=== PATIENT | male | born 1980 | race Two or more races ===

== ENCOUNTER 2017-03-26 11:09 | Emergency (ER) | payer MEDICARE, OTHER ==
[~2017-03-26] VITALS: Ht 175.3 cm; Wt 94.8 kg
[2017-03-26] MEDS ORDERED: HYDROcodone-ACET 10/325MG TAB ONE (11:23)
[2017-03-26] MEDS ORDERED: HYDROcodone-ACET 10/325MG TAB PO ONE (11:30)
[2017-03-26 14:00] VITALS: BP 126/89
== END 2017-03-26 14:00 | disposition home or self-care (01) ==
LOC: ER 11:09
DX: N45.1 Epididymitis (principal)
CPT/HCPCS: 76870

== ENCOUNTER 2022-09-30 01:03 | Emergency (ER) | payer MEDICARE, OTHER ==
[~2022-09-30] VITALS: Ht 175.3 cm; Wt 89.5 kg
[2022-09-30 01:25] VITALS: BP 145/73
[2022-09-30 02:12] LABS: Basophils # (auto) 0 10 ^3/uL (0-0.2); Basophils % (auto) 0.2 % (0.0-2.0); Eosinophils # (auto) 0 10 ^3/uL (0-0.8); Eosinophils % (auto) 0.1 % (0.0-7.0); Hematocrit 38.8 % (41.0-53.0); Hemoglobin 13.2 g/dL (13.5-17.5); Lymphocytes # (auto) 1.8 10 ^3/uL (0.4-5.4); Lymphocytes % (auto) 20.3 % (10.0-50.0); Mean Corpuscular Hgb Conc. 34.1 g/dL (32.0-36.0); Mean Corpuscular Volume 87.8 fL (80.0-100.0); Monocytes % (auto) 11.2 % (0.0-12.0); Neutrophils # (auto) 6.2 10 ^3/uL (1.6-8.6); Neutrophils % (auto) 68.2 % (37.0-80.0); Red Blood Cells 4.41 10^6/uL (4.5-5.90); Red Cell Distribution Width 12.7 % (11.8-14.3)
[2022-09-30 02:22] LABS: Urine Bacteria NONE SEEN /hpf (None Seen); Urine Blood TRACE /uL (Negative); Urine Mucus FEW (None Seen); Urine Specific Gravity 1.019 (1.001-1.035); Urine WBC 3 /hpf (0 - 3)
[2022-09-30 02:28] LABS: Alcohol, Urine < 3.0 mg/dL (0-10); Amphetamine Screen, Urine NEGATIVE (NEGATIVE); Barbiturate Scree,Urine NEGATIVE (NEGATIVE); Benzodiazephine Screen, Urine NEGATIVE (NEGATIVE); Cannabinoid Screen, Urine POSITIVE (NEGATIVE); Cocaine Screen, Urine NEGATIVE (NEGATIVE)
[2022-09-30 02:28] LABS: Albumin 3.8 g/dL (3.4-5.0); Anion Gap 5 (5-15); BUN/Creatinine Ratio 16.5 (10.0-20.0); Blood Alcohol < 3.0 mg/dL (0-5); Blood Urea Nitrogen 15 mg/dL (7-18); Calcium 9.2 mg/dL (8.5-10.1); Carbon Dioxide 25 mmol/L (21-32); Chloride 109 mmol/L (98-107); GFR African American 119 mL/min; GFR Non-African American 98 mL/min; Glucose 101 mg/dL (74-106); Potassium 4.6 mmol/L (3.5-5.1); Sodium 139 mmol/L (136-145)
[2022-09-30 02:31] LABS: Alanine Aminotransferase 25 U/L (16-61); Alkaline Phosphatase 76 U/L (45-117); Aspartate Aminotransferase 24 U/L (15-37); Bilirubin, Total 0.6 mg/dL (0.2-1.0); Total Protein 7.7 g/dL (6.4-8.2)
[2022-09-30 02:35] LABS: Opiate Scree,Urine NEGATIVE (NEGATIVE); Phencyclidine Screen, Urine NEGATIVE (NEGATIVE)
[2022-09-30 02:35] LABS: Acetaminophen < 2.0 ug/mL (10-30); Salicylate < 1.7 mg/dL (2.8-20.0)
== END 2022-09-30 06:05 | disposition left against medical advice (07) ==
LOC: ER 01:03
DX: F41.9 Anxiety disorder, unspecified (principal); Z53.21 Procedure and treatment not carried out due to patient leaving prior to being seen by health care provider
CPT/HCPCS: 36415; 80053; 80307; 80320; 80329; 81001; 85025

== ENCOUNTER 2023-01-22 23:41 | Emergency (ER) | payer MEDICARE, OTHER ==
[~2023-01-22] VITALS: Ht 175.3 cm; Wt 78.0 kg
[2023-01-22 23:41] VITALS: BP 138/77; PULSE 66; RESP 16; TEMP 97.7
[2023-01-23] MEDS ORDERED: ELUX1TAB2 PO (01:59)
[2023-01-23] MEDS ORDERED: IBUP-1456 PO (01:59)
[2023-01-23] MEDS ORDERED: KETOROLAC TROMETH 60MG/2ML VIAL IM ONE (02:00)
[2023-01-23 02:19] VITALS: O2SAT 97
[2023-01-23] MEDS ORDERED: ACET500T58 PO (02:21)
== END 2023-01-23 02:41 | disposition home or self-care (01) ==
LOC: ER 23:41
DX: M54.81 Occipital neuralgia (principal); Z87.19 Personal history of other diseases of the digestive system
CPT/HCPCS: 70450; 96372; 99285; J1885

== ENCOUNTER 2023-03-02 00:43 | Emergency (ER) | payer MEDICARE, OTHER ==
[~2023-03-02] VITALS: Ht 175.3 cm; Wt 78.2 kg
[~2023-03-02 00:43] MED LIST: ACET500T58 PO; ELUX1TAB2 PO
[2023-03-02] MEDS ORDERED: KETOROLAC TROMETH 60MG/2ML VIAL IM ONE (02:15)
[2023-03-02] MEDS ORDERED: HYDROcodone-ACET 7.5/325MG TAB PO ONE (02:15)
[2023-03-02] MEDS ORDERED: NAP500T PO (02:18)
[2023-03-02] MEDS ORDERED: HYDR-4902 PO (02:18)
[2023-03-02] MEDS ORDERED: DexAMETHasone SOD PHOS 10MG/1ML VIAL INJ IM ONE (02:30)
[2023-03-02 02:44] VITALS: BP 130/80; PULSE 78; RESP 18; TEMP 98.3; O2SAT 96
== END 2023-03-02 02:47 | disposition home or self-care (01) ==
LOC: ER 00:44
DX: M17.12 Unilateral primary osteoarthritis, left knee (principal); M25.562 Pain in left knee; I10 Essential (primary) hypertension; Z79.1 Long term (current) use of non-steroidal anti-inflammatories (NSAID); Z79.899 Other long term (current) drug therapy
CPT/HCPCS: 96372; 99283; J1885

== ENCOUNTER 2023-03-07 17:55 | Emergency (ER) | payer MEDICARE, OTHER ==
[~2023-03-07] VITALS: Ht 175.3 cm; Wt 75.9 kg
[~2023-03-07 17:55] MED LIST changes: +HYDR-4902 PO; +NAP500T PO
[2023-03-07 18:41] VITALS: BP 144/95; PULSE 97; RESP 20; O2SAT 99
[2023-03-07 19:25] LABS: Urine Bacteria NONE SEEN /hpf (None Seen); Urine Blood Negative /uL (Negative); Urine Clarity Clear (Clear); Urine Color Colorless (Yellow); Urine Protein, UAD Negative (Negative); Urine Specific Gravity 1.009 (1.001-1.035); Urine Urobilinogen Normal (Negative); Urine WBC <1 /hpf (0 - 3)
[2023-03-07 19:30] LABS: Basophils # (auto) 0 10 ^3/uL (0-0.2); Eosinophils # (auto) 0 10 ^3/uL (0-0.8); Eosinophils % (auto) 0.1 % (0.0-7.0); Hemoglobin 14.9 g/dL (13.5-17.5); Lymphocytes # (auto) 1.8 10 ^3/uL (0.4-5.4); Neutrophils # (auto) 6.2 10 ^3/uL (1.6-8.6); White Blood Cell 8.5 10^3/uL (4.4-10.8)
[2023-03-07 19:31] LABS: Basophils % (auto) 0.2 % (0.0-2.0); Hematocrit 41.4 % (41.0-53.0); Lymphocytes % (auto) 20.7 % (10.0-50.0); Mean Corpuscular Hemoglobin 31.4 pg (28.0-32.0); Mean Corpuscular Hgb Conc. 36.1 g/dL (32.0-36.0); Mean Corpuscular Volume 87.2 fL (80.0-100.0); Monocytes # (auto) 0.5 10 ^3/uL (0-1.3); Monocytes % (auto) 6.3 % (0.0-12.0); Neutrophils % (auto) 72.7 % (37.0-80.0); Nucleated Red Blood Cells % 0.2 %; Red Blood Cells 4.75 10^6/uL (4.5-5.90)
[2023-03-07 19:34] LABS: Alanine Aminotransferase 18 U/L (7-40); Albumin 5.1 g/dL (3.2-4.8); Alkaline Phosphatase 82 U/L (46-116); Anion Gap 9 (5-15); Aspartate Aminotransferase 12 U/L (13-40); BUN/Creatinine Ratio 15.3 (10.0-20.0); Blood Urea Nitrogen 15 mg/dL (9-23); Calcium 9.9 mg/dL (8.7-10.4); Carbon Dioxide 26 mmol/L (20-30); Chloride 106 mmol/L (98-107); Glucose 83 mg/dL (74-106); Potassium 3.7 mmol/L (3.5-5.1); Sodium 141 mmol/L (136-145)
[2023-03-07 19:35] LABS: Bilirubin, Total 0.6 mg/dL (0.2-1.0)
== END 2023-03-07 19:45 | disposition left against medical advice (07) ==
LOC: ER 17:55
DX: R55 Syncope and collapse (principal); L53.9 Erythematous condition, unspecified; Z53.21 Procedure and treatment not carried out due to patient leaving prior to being seen by health care provider
CPT/HCPCS: 36415; 80053; 81001; 85025

== ENCOUNTER 2023-03-18 04:13 | Emergency (ER) | payer MEDICARE, OTHER ==
[~2023-03-18] VITALS: Ht 175.3 cm; Wt 76.0 kg
[2023-03-18 04:28] VITALS: BP 124/94; PULSE 89; RESP 16; TEMP 98.3; O2SAT 96
[2023-03-18] MEDS ORDERED: DICL1GEL59 EX (05:22)
== END 2023-03-18 05:48 | disposition home or self-care (01) ==
LOC: ER 04:13
DX: M25.562 Pain in left knee (principal); M25.561 Pain in right knee; G89.29 Other chronic pain; I10 Essential (primary) hypertension; Z79.899 Other long term (current) drug therapy
CPT/HCPCS: 99283; J7030

== ENCOUNTER 2023-05-11 14:50 | Emergency (ER) | payer MEDICARE, OTHER ==
[~2023-05-11] VITALS: Ht 175.3 cm; Wt 81.4 kg
[~2023-05-11 14:50] MED LIST changes: +DICL1GEL59 EX
[2023-05-11] MEDS ORDERED: IBU600T PO (15:23)
[2023-05-11] MEDS ORDERED: KETOROLAC TROMETH 60MG/2ML VIAL IM ONE (15:30)
[2023-05-11 16:10] LABS: Basophils # (auto) 0 10 ^3/uL (0-0.2); Basophils % (auto) 0.4 % (0.0-2.0); Eosinophils # (auto) 0.1 10 ^3/uL (0-0.8); Eosinophils % (auto) 0.9 % (0.0-7.0); Hematocrit 42.3 % (41.0-53.0); Hemoglobin 14.2 g/dL (13.5-17.5); Lymphocytes # (auto) 2.1 10 ^3/uL (0.4-5.4); Lymphocytes % (auto) 26.4 % (10.0-50.0); Mean Corpuscular Hemoglobin 29.9 pg (28.0-32.0); Mean Corpuscular Hgb Conc. 33.7 g/dL (32.0-36.0); Mean Corpuscular Volume 88.8 fL (80.0-100.0); Monocytes # (auto) 0.7 10 ^3/uL (0-1.3); Monocytes % (auto) 9.3 % (0.0-12.0); Red Blood Cells 4.76 10^6/uL (4.5-5.90); Red Cell Distribution Width 13.5 % (11.8-14.3)
[2023-05-11 16:30] LABS: Alanine Aminotransferase 14 U/L (7-40); Albumin 4.7 g/dL (3.2-4.8); Alkaline Phosphatase 82 U/L (46-116); Anion Gap 5 (5-15); Aspartate Aminotransferase 12 U/L (13-40); BUN/Creatinine Ratio 24.5 (10.0-20.0); Bilirubin, Total 0.4 mg/dL (0.2-1.0); Blood Urea Nitrogen 23 mg/dL (9-23); Calcium 9.5 mg/dL (8.7-10.4); Carbon Dioxide 29 mmol/L (20-30); Chloride 106 mmol/L (98-107); Glucose 95 mg/dL (74-106); Potassium 4.2 mmol/L (3.5-5.1); Sodium 140 mmol/L (136-145); Total Protein 7.2 g/dL (5.7-8.2)
[2023-05-11 21:02] VITALS: BP 141/86; PULSE 58; RESP 19; TEMP 97.5; O2SAT 100
[2023-05-11 22:17] LABS: Rapid Influenza B Negative (Negative)
[2023-05-11 22:18] LABS: Rapid Influenza A Positive (Negative)
[2023-05-11 22:19] LABS: COVID19 ANTIGEN SOFIA FIA NEGATIVE (NEGATIVE)
== END 2023-05-12 00:05 | disposition home or self-care (01) ==
LOC: ER 14:50
DX: R07.89 Other chest pain (principal); I10 Essential (primary) hypertension; E78.5 Hyperlipidemia, unspecified; Z79.899 Other long term (current) drug therapy; Z20.822 Contact with and (suspected) exposure to COVID-19; X50.0XXA Overexertion from strenuous movement or load, initial encounter; Y93.89 Activity, other specified; Y92.89 Other specified places as the place of occurrence of the external cause; Y99.8 Other external cause status
CPT/HCPCS: 36415; 71045; 73030; 80053; 84484; 85025; 85379; 87426; 87804; 96372; 99284; J1885

== ENCOUNTER 2023-09-11 08:12 | Emergency (ER) | payer MEDICARE, OTHER ==
[~2023-09-11] VITALS: Ht 175.3 cm; Wt 80.8 kg
[~2023-09-11 08:12] MED LIST changes: +IBU600T PO
[2023-09-11 08:58] VITALS: BP 136/88; PULSE 83; RESP 18; TEMP 98.6; O2SAT 96
[2023-09-11] MEDS: KETOROLAC TROMETH 30 MG/ML 1ML VIAL IV ONE (09:30)
[2023-09-11] MEDS: SODIUM CHLORIDE 0.9% 1,000 ML IV ONE (09:43)
[2023-09-11] MEDS: diphenhdrAMINE HCL 50 MG/1 ML VL IV ONE (09:56)
[2023-09-11] MEDS: PROCHLORPERAZINE EDISYLATE 5 MG/ML 2ML VIAL IV ONE (09:59)
== END 2023-09-11 12:19 | disposition home or self-care (01) ==
LOC: ER 08:12
DX: G43.909 Migraine, unspecified, not intractable, without status migrainosus (principal); I10 Essential (primary) hypertension; E78.5 Hyperlipidemia, unspecified
CPT/HCPCS: 70450; 96361; 96374; 96375; 99285; J0780; J1200; J1885; J7030

== ENCOUNTER → 2023-10-02 | Emergency (ER) | payer MEDICARE, OTHER ==
[~2023-10-02] MED LIST changes: +LIDO5CRE14 EX; +PRED20TA2 PO
== END | disposition left against medical advice (07) ==
LOC: ER 20:01
DX: J18.9 Pneumonia, unspecified organism (principal); Z53.21 Procedure and treatment not carried out due to patient leaving prior to being seen by health care provider

== ENCOUNTER → 2023-10-02 | Emergency (ER) | payer MEDICARE, OTHER ==
[~2023-10-02] VITALS: Ht 175.3 cm; Wt 79.3 kg
[~2023-10-02] MED LIST changes: -LIDO5CRE14 EX; -PRED20TA2 PO
[2023-10-02 17:04] VITALS: BP 143/81; PULSE 84; RESP 18; O2SAT 98
== END | disposition left against medical advice (07) ==
LOC: ER 16:52
DX: Z23 Encounter for immunization (principal); Z53.21 Procedure and treatment not carried out due to patient leaving prior to being seen by health care provider

== ENCOUNTER 2023-10-15 07:59 | Emergency (ER) | payer MEDICARE, OTHER ==
[~2023-10-15] VITALS: Ht 175.3 cm; Wt 83.7 kg
[2023-10-15 08:26] LABS: Urine Bacteria None Seen /hpf (None Seen)
[2023-10-15 08:39] LABS: Urine Blood Negative /uL (Negative); Urine Clarity Clear (Clear); Urine Color Light-Yellow (Yellow); Urine Protein, UAD Negative (Negative); Urine Specific Gravity 1.018 (1.001-1.035); Urine Urobilinogen Normal (Negative); Urine WBC <1 /hpf (0 - 3)
[2023-10-15] MEDS: SODIUM CHLORIDE 0.9% 1,000 ML IV ONE (08:39)
[2023-10-15 08:40] VITALS: BP 120/87; PULSE 59; RESP 18; TEMP 97.7; O2SAT 100
[2023-10-15 08:53] LABS: Basophils # (auto) 0 10 ^3/uL (0-0.2); Basophils % (auto) 0.5 % (0.0-2.0); Eosinophils # (auto) 0.1 10 ^3/uL (0-0.8); Eosinophils % (auto) 1.5 % (0.0-7.0); Hematocrit 42.1 % (41.0-53.0); Hemoglobin 14.2 g/dL (13.5-17.5); Lymphocytes # (auto) 1.5 10 ^3/uL (0.4-5.4); Lymphocytes % (auto) 26.3 % (10.0-50.0); Mean Corpuscular Hemoglobin 29.9 pg (28.0-32.0); Mean Corpuscular Hgb Conc. 33.8 g/dL (32.0-36.0); Mean Corpuscular Volume 88.6 fL (80.0-100.0); Monocytes # (auto) 0.4 10 ^3/uL (0-1.3); Monocytes % (auto) 6.9 % (0.0-12.0); Neutrophils # (auto) 3.8 10 ^3/uL (1.6-8.6); Neutrophils % (auto) 64.8 % (37.0-80.0); Nucleated Red Blood Cells % 0.1 %; Red Blood Cells 4.76 10^6/uL (4.5-5.90); Red Cell Distribution Width 12.6 % (11.8-14.3); White Blood Cell 5.8 10^3/uL (4.4-10.8)
[2023-10-15 08:58] LABS: Chloride 108 mmol/L (98-107); Potassium 3.9 mmol/L (3.5-5.1); Sodium 141 mmol/L (136-145)
[2023-10-15 08:59] LABS: Anion Gap 2 (5-15); Carbon Dioxide 31 mmol/L (20-30)
[2023-10-15 09:00] LABS: Calcium 9.4 mg/dL (8.5-10.1)
[2023-10-15 09:04] LABS: BUN/Creatinine Ratio 16.9 (10.0-20.0); Blood Urea Nitrogen 14 mg/dL (9-23); Glucose 94 mg/dL (74-106)
== END 2023-10-15 10:29 | disposition left against medical advice (07) ==
LOC: ER 07:59
DX: E87.3 Alkalosis (principal); R10.9 Unspecified abdominal pain; R30.9 Painful micturition, unspecified; E78.5 Hyperlipidemia, unspecified; I10 Essential (primary) hypertension
CPT/HCPCS: 36415; 80048; 81001; 85025; 96360; 96361; 99283; J7030

== ENCOUNTER 2023-11-01 21:06 | Emergency (ER) | payer MEDICARE, OTHER ==
[~2023-11-01] VITALS: Ht 175.3 cm; Wt 80.6 kg
[2023-11-01 22:43] VITALS: BP 125/92; PULSE 65; RESP 20; O2SAT 100
== END 2023-11-02 03:47 | disposition left against medical advice (07) ==
LOC: ER 21:06
DX: M79.605 Pain in left leg (principal); Z53.21 Procedure and treatment not carried out due to patient leaving prior to being seen by health care provider
CPT/HCPCS: 93971

== ENCOUNTER 2023-12-06 10:54 | Emergency (ER) | payer MEDICARE, OTHER ==
[~2023-12-06] VITALS: Ht 175.3 cm; Wt 80.0 kg
[2023-12-06 12:00] VITALS: BP 145/102; PULSE 75; RESP 18; TEMP 97.5; O2SAT 95
[2023-12-06] MEDS: KETOROLAC TROMETH 60MG/2ML VIAL IM ONE (12:41)
[2023-12-06] MEDS: methylPREDNISolone SOD SUCC 125 MG/2 ML VL IM ONE (12:41)
[2023-12-06] MEDS ORDERED: PRED20TA2 PO (12:56)
[2023-12-06] MEDS ORDERED: LIDO5CRE14 EX (12:56)
== END 2023-12-06 13:00 | disposition home or self-care (01) ==
LOC: ER 10:54
DX: M06.9 Rheumatoid arthritis, unspecified (principal); F32.A Depression, unspecified; E78.5 Hyperlipidemia, unspecified; I10 Essential (primary) hypertension; Z79.899 Other long term (current) drug therapy
CPT/HCPCS: 96372; 99284; J1885; J2919

== ENCOUNTER 2024-01-01 06:11 | Emergency (ER) | payer MEDICARE, OTHER ==
[~2024-01-01] VITALS: Ht 175.3 cm; Wt 78.8 kg
[~2024-01-01 06:11] MED LIST changes: +LIDO5CRE14 EX; +PRED20TA2 PO
[2024-01-01 08:00] VITALS: BP 125/81; PULSE 60; RESP 16; TEMP 98; O2SAT 100
== END 2024-01-01 08:56 | disposition home or self-care (01) ==
LOC: ER 06:11
DX: M21.241 Flexion deformity, right finger joints (principal); M19.90 Unspecified osteoarthritis, unspecified site; I10 Essential (primary) hypertension; E78.5 Hyperlipidemia, unspecified; Z79.899 Other long term (current) drug therapy
CPT/HCPCS: 73130

== ENCOUNTER 2024-03-30 16:16 | Emergency (ER) | payer MEDICARE, OTHER ==
[~2024-03-30] VITALS: Ht 175.3 cm; Wt 79.9 kg
[2024-03-30 16:54] LABS: Urine Bacteria None Seen /hpf (None Seen)
[2024-03-30 16:59] LABS: Urine Blood Negative /uL (Negative); Urine Clarity Clear (Clear); Urine Color Light-Yellow (Yellow); Urine Protein, UAD 1+ (Negative); Urine Specific Gravity 1.017 (1.001-1.035); Urine Urobilinogen Normal (Negative); Urine WBC 1 /hpf (0 - 3)
--- NOTE | 2024-03-30 17:38 | ED.PDOC ---
General HPI Comments 43-year-old male with past medical history pertinent for rheumatoid arthritis, HTN, presents to ED for a lump on his left testicle x2 weeks, worsening today. Patient reports that he did as self-testicular exam and started noticing the lump which has grown bigger. He states that it did not cause him any symptoms until today when he started feeling some pain. He currently rates his pain as 3/10 in severity. Patient denies any penile discharge, dysuria, fever, abdominal pain, nausea, vomiting. He denies any recent injuries. He states that he has a appointment with his PCP scheduled for ultrasound and labs. No alleviating or aggravating factors. Chief Complaint: Testicle Pain Time Seen by MD: 16:25 [facility] Care Provider: [facility] Reviewed notes: Nurses Notes, Medications, Allergies Allergies: Coded Allergies: NO KNOWN ALLERGIES (Unverified , 03/26/17) Home Meds Active Scripts Lidocaine (Anorectal) (Lidocaine 5%) 5 % Cre, 5 % EX BID, #60 CRE Prov:YECENIA KAMINSKI 12/06/23 Prednisone (Prednisone) 20 Mg Tab, 40 MG PO DAILY, #20 TAB Prov:YECENIA KAMINSKI 12/06/23 Ibuprofen Micronized (MOTRIN TABLET) 600 Mg Tb, 600 MG PO TID PRN for 5 Days, #15 TAB *Black box warning-NSAIDS can increase risk of NC & hypertension, GI irritation, ulceration, bleed, perferation. Do not use post cardiac surgery. Use short duration/lowest effective dose. Prov:MARIA INES LOVE MD 05/11/23 Diclofenac Sodium (Topical) (Voltaren Arthritis Pain) 1 % Gel, 1 % EX TID, #90 GM Prov:RENÉ MONTALVO PAC 03/18/23 Hydrocodone-Acetaminophen (Hydrocodone Bitartrate/AC 5-325 mg) 1 Tab Tab, 1 TAB PO Q6HR, #10 TAB as needed for severe pain Prov:NAOMI FUENTES TECHNICAL ADVISOR 03/02/23 Naproxen (NAPROSYN TABLET) 500 Mg Tb, 1 TAB PO BID, #20 TAB 1 Refill as needed for pain Prov:NAOMI FUENTES TECHNICAL ADVISOR 03/02/23 Acetaminophen (Acetaminophen) 500 Mg Tab, 500 MG PO QIDP, #30 TAB 0 Refills Prov:YONATHAN TORRES 01/23/23 Eluxadoline (Viberzi) 100 Mg Tab, 100 MG PO BID, #30 TAB 0 Refills Prov:BRIANYONATHAN 01/23/23 Mode of Arrival: Ambulatory Past Medical History PAST MEDICAL HISTORY: Arthritis, Depression, High Lipids, HTN Surgical History: Denies all surgeries Family History Family History: Reviewed,noncontributory to illness, Family hx of HTN Social History Smoker: Non-Smoker Alcohol: Denies ETOH Use Drugs: Denies Drug Use Lives In: Home Constitutional: denies: chills, diaphoresis, fatigue, fever, malaise, sweats, weakness, others EENTM: denies: blurred vision, double vision, ear bleeding, ear discharge, ear drainage, ear pain, ear ringing, eye pain, eye redness, hearing loss, mouth pain, mouth swelling, nasal discharge, nose bleeding, nose congestion, nose pain, photophobia, tearing, throat pain, throat swelling, voice changes, others Respiratory: denies: cough, hemoptysis, orthopnea, SOB at rest, shortness of breath, SOB with excertion, stridor, wheezing, others Cardiovascular: denies: chest pain, dizzy spells, diaphoresis, Dyspnea on exertion, edema, irregular heart beat, left arm pain, lightheadedness, palpitations, PND, syncope, others Gastrointestinal: denies: abdomen distended, abdominal pain, blood streaked bowels, constipated, diarrhea, dysphagia, difficulty swallowing, hematemesis, melena, nausea, poor appetite, poor fluid intake, rectal bleeding, rectal pain, vomiting, others Genitourinary: reports: testicle pain; denies: burning, dysuria, flank pain, frequency, hematuria, incontinence, penile discharge, penile sore, pain, testicle swelling, urgency, others Neurological: denies: dizziness, fainting, headache, left sided numbness, left sided weakness, numbness, paresthesia, pre-existing deficit, right sided numbness, right sided weakness, seizure, speech problems, tingling, tremors, weakness, others Musculoskeletal: denies: back pain, gout, joint pain, joint swelling, muscle pain, muscle stiffness, neck pain, others Integumetry: denies: bruises, change in color, change in hair/nails, dryness, laceration, lesions, lumps, rash, wounds, others Allergic/Immunocompromised: denies: Difficulty Healing, Frequent Infections, Hives, Itching, others Hematologic/Lymphatic: denies: anemia, blood clots, easy bleeding, easy bruising, swollen glands, others Endocrine: denies: excessive hunger, excessive sweating, excessive thirst, excessive urination, flushing, intolerance to cold, intolerance to heat, unexplained weight gain, unexplained weight loss, others Psychiatric: denies: anxiety, bipolar disorder, depression, hopeless, panic disorder, schizophrenia, sleepless, suicidal, others All Other Systems: Reviewed and Negative Physical Exam General Appearance: No Apparent Distress, Normal HEENT: Normal ENT Inspection, Pharynx Normal, TMs Normal Neck: Full Range of Motion, Non-Tender, Normal, Normal Inspection Respiratory: Chest Non-Tender, Lungs Clear, No Accessory Muscle Use, No Respiratory Distress, Normal Breath Sounds Cardiovascular: No Edema, No JVD, No Murmur, No Gallop, Normal Peripheral Pulses, Regular Rate/Rhythm Breast Exam: Deferred Gastrointestinal: No Organomegaly, Non Tender, No Pulsatile Mass, Normal Bowel Sounds, Soft Genitalia: Testicle (No testicular swelling noted bilaterally. Cremasteric reflex present bilaterally. Small cyst-like structure felt on the left testicle. No tenderness to palpation to the testicles.) Pelvic: Deferred Rectal: Deferred Extremities: No calf tenderness, Normal capillary refill, Normal inspection, Normal range of motion, Non-tender, No pedal edema Musculoskeletal : Apperance: Normal Neurologic: Alert, grinding machine operator portable II-XII nml as Tested, No Motor Deficits, Normal Affect, Normal Mood, No Sensory Deficits Cerebellar Function: Normal Reflexes: Normal Skin: Dry, Normal Color, Warm Lymphatic: No Adenopathy Was a procedure done? Was a procedure done?: No Differential Diagnosis Kidney stone (Female): N/A Penile/Scrotal: Epidiymitis, UTI, Hydrocele, Testicular Torsion X-Ray, Labs, Meds, VS Vital Signs Date Time Temp Pulse Resp B/P (MAP) Pulse Ox O2 Delivery O2 Flow Rate FiO2 03/30/24 19:20 65 20 98 Room Air 03/30/24 19:20 98.8 67 20 134/86 (102) 97 98.8 03/30/24 16:25 98.6 77 18 158/98 (118) 98 Lab Test 03/30/24 16:30 Range/Units Urine Color Light-yellow Yellow Urine Clarity Clear Clear Urine pH 6.0 5.0-9.0 Urine Specific [place] 1.017 1.001-1.035 Urine Protein 1+ H Negative Urine Ketones Trace Negative Urine Blood Negative Negative /uL Urine Nitrite Negative Negative Urine Bilirubin Negative Negative Urine Urobilinogen Normal Negative mg/dL Urine Leukocyte Esterase Negative Negative /uL Urine RBC 1 0 - 3 /hpf Urine WBC 1 0 - 3 /hpf Urine Squamous Epithelial Cells None seen <5 /hpf Urine Bacteria None seen None Seen /hpf Urine Glucose Normal Normal mg/dL X-Ray, Labs, Meds, VS Comment Testicular US Findings: History of vasectomy . Right testicle measures 4.8 x 2.3 x 3.2 cm with homogenous echotexture and normal contours. Right epididymal head measures 1.1 cm and demonstrates tubular ectasia. Left testicle measures 4.9 x 2.4 x 3 cm with homogenous echotexture and normal contours. Left epididymal head measures 1.3 cm and demonstrates tubular ectasia.. Normal testicular color and spectral Doppler flow bilaterally. No evidence of testicular torsion, or mass. Trace bilateral hydroceles. Impression: No evidence of testicular torsion. Trace bilateral hydrocele. Tubular ectasia of bilateral epididymis. MDM: Patient with history as above presented with left testicle pain. History obtained from patient. Patient was nontoxic, stable, afebrile, ambulatory, no acute distress. Exam as above. Labs reviewed. Urinalysis was negative for acute infection. Independently reviewed imaging. Testicular ultrasound showed tubular ectasia. Reviewed external records. All findings were discussed with the patient. Differential diagnosis considered. Overall presentation is consistent with tubular ectasia. Low suspicion for epididymitis, UTI, testicular torsion. Patient was reevaluated and vital signs were reviewed. Consideration was given for admission, but the patient was stable for outpatient management. Patient was advised to follow up with his PCP and possibly get a referral for Urology for further evaluation. Disposition: Discussed the need to follow up diagnostics, including incidental findings. Discharged the patient with instructions to obtain outpatient follow up in 1-2 days of today's symptoms and findings, with strict return precautions if patient develops new or worsening symptoms. This medical document was created using the [employer] system. Although this document has been carefully reviewed, there may still be some phonetic and typographical errors, which are due to imperfections of the software program, and do not reflect any compromise in the patient's medical care. Time of 1ST Reevaluation: 18:57 Reevaluation 1ST: Improved Patient Education/Counseling: Diagnosis, Treatment, Prognosis, Need For Follow Up Family Education/Counseling: No Family Present Departure 1 Departure Time of Disposition: 18:58 Impression: Primary Impression: Testicular pain, left Disposition: 01 HOME / SELF CARE / HOMELESS Condition: Fair Additional Instructions: Your ultrasound showed tubular ectasia of the epididymis. Please follow up with PCP for further evaluation. Critical Care Note Critical Care Time?: No Stability Stability form required: No Heart Score Heart Score: Heart Score Response (Comments) Value History N/A 0 EKG N/A 0 Age N/A 0 Risk Factors N/A 0 Troponin N/A 0 Total 0 BERRY BENZ PAC Mar 30, 2024 17:38
--- NOTE | 2024-03-30 18:35 | DVH ---
Procedure: US TESTICULAR ULTRASOUND Study Date and Requested Time: 03/30/2024 04:38 PM History: Lump on left testicle Comparison: None Technique: Multiple high-resolution grayscale images of scrotal contents obtained. Color and spectral Doppler used for evaluation of testicular blood flow. Findings: History of vasectomy . Right testicle measures 4.8 x 2.3 x 3.2 cm with homogenous echotexture and normal contours. Right epi didymal head measures 1.1 cm and demonstrates tubular ectasia. Left testicle measures 4.9 x 2.4 x 3 cm with homogenous echotexture and normal contours. Left epididy mal head measures 1.3 cm and demonstrates tubular ectasia.. Normal testicular color and spectral Doppler flow bilaterally. No evidence of testicular torsion, or mass. Trace bilateral hydroceles. Impression: No evidence of testicular torsion. Trace bilateral hydrocele. Tubular ectasia of bilateral epididymis.
[2024-03-30 19:20] VITALS: BP 134/86; PULSE 65; RESP 20; TEMP 98.8; O2SAT 98
== END 2024-03-30 19:41 | disposition home or self-care (01) ==
LOC: ER 16:16
DX: N50.812 Left testicular pain (principal); I10 Essential (primary) hypertension; M19.90 Unspecified osteoarthritis, unspecified site; E78.5 Hyperlipidemia, unspecified; F41.9 Anxiety disorder, unspecified; F32.A Depression, unspecified; Z79.899 Other long term (current) drug therapy
CPT/HCPCS: 76870; 81001